=== PATIENT | male | born 1965 | race Caucasian/White ===

== ENCOUNTER 2016-02-27 10:00 | Emergency (ER) | payer OTHER ==
[2016-02-27 10:22] VITALS: RESP 16; TEMP 98.1
[2016-02-27] MEDS ORDERED: ASPIRIN 81 MG CHEWABLE TAB PO ONE (10:27)
[2016-02-27] MEDS ORDERED: ENOXAPARIN 100 MG/ML SYR SC ONE (11:21)
--- NOTE | 2016-02-27 11:23 | US ---
Right Lower Extremity Ultrasound and Venous Duplex Doppler Study History: Right leg swelling and tenderness. Comparison: None available. Technique: High frequency transducer was used for imaging and Doppler study of the veins of the lowe r extremity. Pulsed Doppler and color Doppler were utilized, along with various maneuvers to assess flow in the veins. Findings: There is DVT extending from the distal femoral vein through the popliteal vein and into the peroneal and posterior tibial veins throughout the calf. The common femoral vein and proximal femora l vein are patent. The greater saphenous vein is patent. Impression: DVT extending from the distal femoral vein through the calf veins. Findings discussed with Adriel Ordaz today at 1110 hours.
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
[2016-02-27 13:04] VITALS: BP 148/103; PULSE 79; O2SAT 96
== END 2016-02-27 12:45 | disposition home or self-care (01) ==
LOC: CED 10:00
DX: I82.4Z1 Acute embolism and thrombosis of unspecified deep veins of right distal lower extremity (principal)
CPT/HCPCS: 93971-PO; 96372-PO; G0463-PO; J1650

== ENCOUNTER → 2016-02-28 | Outpatient (CLI) | payer OTHER ==
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
== END ==
LOC: FIMAGING 15:27
PROVIDERS: ATTEND Radiology Diagnostic Radiology
DX: I82.4Z1 Acute embolism and thrombosis of unspecified deep veins of right distal lower extremity (principal)

== ENCOUNTER 2016-03-07 11:36 | Inpatient (IN) | payer OTHER ==
[2016-03-07] MEDS ORDERED: fentaNYL 100 MCG/2 ML INJ ONE (13:35)
[2016-03-07] MEDS ORDERED: MIDAZOLAM 2 MG/2 ML VIAL ONE (13:35)
[2016-03-07] MEDS ORDERED: ALTEPLASE 5 MG in NS 100 ML IVP SCH (14:30)
[2016-03-07] MEDS ORDERED: NITROGLYCERIN 2% 1 GM PACKET ONE (14:31)
[2016-03-07] MEDS ORDERED: HEPARIN/DEXTROSE 25,000 UNIT/500 ML BAG IV ONE (15:26)
[2016-03-07] MEDS ORDERED: IOPAMIDOL (ISOVUE-300) 100 ML BTL IV ONE (15:43)
[2016-03-07] MEDS ORDERED: ONDANSETRON 4 MG/2 ML VIAL IVP PRN (16:19)
[2016-03-07] MEDS ORDERED: PROMETHAZINE HCL 25 MG/ML INJ IVP PRN (16:19)
[2016-03-07] MEDS ORDERED: HEPARIN/DEXTROSE 500 ML IV SCH (16:30)
[2016-03-07] MEDS: ALTEPLASE 5 MG in NS 100 ML IV SCH ×2 (18:55→23:00)
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
[2016-03-07] MEDS: LORazepam 1 MG TAB PO PRN (22:46)
[2016-03-07 22:53] LABS: APTT 45.8 SEC (23.0-38.0)
[2016-03-08] MEDS: ALTEPLASE 5 MG in NS 100 ML IV SCH (03:59)
[2016-03-08] MEDS: LORazepam 1 MG TAB PO PRN ×2 (04:46→22:09)
[2016-03-08 04:48] LABS: % IMMATURE GRANULYOCYTES 0.1 % (0.0-1.1); ABSOLUTE IMMATURE GRANULOCYTES 0.01 10^3/uL (0.00-0.10); ADD DIFF? NO; ADD MORPH? NO; ADD SCAN? NO; ATYPICAL LYMPHOCYTE FLAG 10 (0-99); FRAGMENT RBC FLAG 0 (0-99); HEMATOCRIT 37.5 % (40.0-51.0); HEMOGLOBIN 12.5 g/dL (13.7-17.5); LEFT SHIFT FLG 0 (0-99); LIPEMIA HEMOLYSIS FLAG 80 (0-99); MEAN CELL HEMOGLOBIN 29.4 pg (27.9-34.1); MEAN CELL HEMOGLOBIN CONCENTR. 33.3 g/dL (32.4-36.7); MEAN CELL VOLUME 88.2 fL (81.5-99.8); MEAN PLATELET VOLUME 9.7 fL (8.7-11.7); PLATELET CLUMPS FLAG 10 (0-99); PLATELET COUNT 252 10^3/uL (150-400); RED BLOOD CELL COUNT 4.25 10^6/uL (4.40-6.38); RED CELL DISTRIBUTION WIDTH 11.7 % (11.5-15.2)
[2016-03-08 05:02] LABS: APTT 42.8 SEC (23.0-38.0)
[2016-03-08 08:38] LABS: APTT 41.5 SEC (23.0-38.0)
[2016-03-08] MEDS ORDERED: fentaNYL 100 MCG/2 ML INJ ONE (10:00)
[2016-03-08] MEDS ORDERED: MIDAZOLAM 2 MG/2 ML VIAL ONE (10:00)
[2016-03-08] MEDS ORDERED: IOPAMIDOL (ISOVUE-300) 100 ML BTL IV ONE (10:50)
[2016-03-08] MEDS ORDERED: HEPARIN 10,000 UNIT/10 ML MDV ONE (10:51)
[2016-03-08] MEDS ORDERED: NON-FORMULARY NEW DRUG (Losartan Potassium [Cozaar] 100 MG) PO SCH (11:15)
[2016-03-08] MEDS ORDERED: RIVAROXABAN 15 MG TAB PO SCH (11:30)
[2016-03-08] MEDS: LOSARTAN POTASSIUM 50 MG TAB PO SCH (11:52)
[2016-03-08] MEDS ORDERED: ACETAMINOPHEN 325 MG TAB PO PRN (18:57)
--- NOTE | 2016-03-08 19:04 | SOAPPROG ---
[facility] Progress Note Assessment/Plan: Assessment: 1. Already underway with good clinical response. 2. Residual DVT in RT leg will likely continue to lyse with anticoagulation. 3. Patient is at the highest risk for re-clotting in the next two weeks. Plan: 1. OOB 2. Ankel ROM excercises encouraged; 3. Compression stocking 4. Hold Xeralto for now. Lovenox 100mg BID x 2 weeks (script on chart) to maximize adequate anticoagulation. 5. May resume Xeralto after lovenox. 6. May resume any activity appropriate for knee rehab. 7. Floor status 8. Anticipate D/C tomorrow. 03/08/16 18:59 Subjective: Hasn't gotten out of bed since procedure but feels better. RT leg pain less. Objective: Vital Signs Temp Pulse Resp BP Pulse Ox 37.1 C 87 14 131/74 H 93 03/08/16 16:13 03/08/16 18:00 03/08/16 18:00 03/08/16 18:00 03/08/16 18:00 Laboratory Results 03/08/16 04:30 03/07/16 03/08/16 03/09/16 05:59 05:59 05:59 Intake Total 672 1016 Output Total 1999 3050 Balance -1328 -84 RLE calf tenseness and redness already much improved. Foot edema improved. ICD10 Worksheet Patient Problems: Problems Problem Status Diagnosed Dvt femoral (deep venous thrombosis) Acute - ICD10 Problem Qualifiers (1) Dvt femoral (deep venous thrombosis)
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
[2016-03-08] MEDS: ENOXAPARIN 100 MG/ML SYR SC SCH (21:37)
[2016-03-09 07:53] VITALS: PULSE 74; RESP 16; TEMP 97.7; O2SAT 98
[2016-03-09 09:07] VITALS: BP 118/77
[2016-03-09] MEDS: ENOXAPARIN 100 MG/ML SYR SC SCH (09:07)
[2016-03-09] MEDS: LOSARTAN POTASSIUM 50 MG TAB PO SCH (09:07)
--- NOTE | 2016-03-09 11:46 | SOAPPROG ---
[facility] Progress Note Assessment/Plan: Assessment: 1. Already underway with good clinical response. 2. Residual DVT in RT leg will likely continue to lyse with anticoagulation. 3. Patient is at the highest risk for re-clotting in the next two weeks. Plan: 1. OOB 2. Ankel ROM excercises encouraged; 3. Compression stocking 4. Hold Xeralto for now. Lovenox 100mg BID x 2 weeks (script on chart) to maximize adequate anticoagulation. 5. May resume Xeralto after lovenox. 6. May resume any activity appropriate for knee rehab. 7. Floor status 8. Anticipate D/C tomorrow. 03/08/16 18:59 03/09/16 11:46 Doing great. D/C home today. Lovenox x 2 2weeks; Xeralto after that. Follow up with PCP and Ortho as needed. Subjective: Continues to feel good. Leg swelling continues to be better. Foot swelling better. Objective: Vital Signs Temp Pulse Resp BP Pulse Ox 36.5 C 74 16 118/77 98 03/09/16 07:52 03/09/16 07:52 03/09/16 07:52 03/09/16 09:07 03/09/16 07:52 Laboratory Results 03/08/16 04:30 03/08/16 03/09/16 03/10/16 05:59 05:59 05:59 Intake Total 672 2671 Output Total 1999 8789 Tfyrwtr -9300 -06 Compression on, but can see that swelling is visibly less at foot. Pulses good. ICD10 Worksheet Patient Problems: Problems Problem Status Diagnosed Dvt femoral (deep venous thrombosis) Acute - ICD10 Problem Qualifiers (1) Dvt femoral (deep venous thrombosis)
--- NOTE | 2016-03-09 22:28 | IR ---
Lysis Follow up Mechanical Thrombectomy of Right Lower Extremity DVT Indication: Post 16-hour TPA lysis. Infusions have been stopped for several hours because of droppi ng fibrinogen count. The patient reports feeling better. Informed Consent: Obtained from the patient. Risks and benefits were discussed. Cross Cutting Measure: Patient's current list of medications including all known prescriptions, over -the-counters, herbals, and vitamin/mineral/dietary supplements are reviewed. Medications' name, dos age, frequency, and route of administration are confirmed. Patient is a non-smoker. Prophylactic Antibiotic: Cefazolin was not ordered and administered for antimicrobial prophylaxis be cause it was not medically necessary. VTE Prophylaxis: There is not an order for VTE prophylaxis to be given within 24 hours of the proced ure end time. VTE prophylaxis was not given because it was not medically necessary. Technique: Patient is placed in prone position. A "timeout" procedure was performed to identify the correct patient and the correct procedure. 1% Xylocaine was used for local anesthetic. All element s of maximal sterile barrier technique, including cap, mask, sterile gown, sterile gloves, large ster ile sheet, hand hygiene, and 2% chlorhexidine for cutaneous antisepsis, followed. Venogram is performed through the existing ankle catheter. This shows increased vascularity throughou t the calf. The clot in the femoral segment has decreased, although the caliber of the vein still re tony small. Injected contrast does clear fairly fast, at least faster, in the calf segment. The infusion catheter is removed over exchange length 0.014 wire. 5-[place]vad[place] Possis AngioJet system is inserted, and mechanical thrombectomy is performed. Post thrombectomy venogram shows much faster an tegrade flow, with a larger caliber popliteal and femoral vein segment. There is inline flow to the p atent upstream vessels. Catheters and wires were removed. Hemostasis was obtained using pressure holding. Medication: 200 mcg fentanyl, 4 mg Versed, [id number]. Fluoroscopy: 3.4 minutes, 8 images. Impressions 1. Moderate clot removal. 2. Still smaller caliber of vessels, but now an inline flow has been established from calf to thigh. 3. Much improved vascular flow in the calf. Follow up: Continued evaluation of this patient shows significant improvement in calf swelling and t enseness. Thigh symptoms are also improved.
--- NOTE | 2016-03-11 20:41 | GDS ---
[f rep st] DISCHARGE SUMMARY INDICATION: 1. Extensive right lower extremity deep venous thrombosis. 2. Tibial plateau fracture with nonweightbearing status for at least five more weeks. 3. Clinically symptomatic swelling and erythema. 4. 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 PROCEDURE PERFORMED: Venogram and deep venous thrombosis lysis of the right lower extremity. HOSPITAL COURSE: The procedure started on March 07. On March 08, patient was evaluated with venogram, showing significant improvement in clot burden. TP lysis was completed. After recovery, patient ambulating and was transitioned to Lovenox. By the next day, March 09, hi s cast swelling was already significantly better. His leg discoloration is now nearly completely res olved. The clinical response from this was excellent in the short term. Patient is a high-risk for reclotting in the next two weeks. He was taken off his Xarelto for this r italo and placed on therapeutic twice-a-day Lovenox. He is to resume his Xarelto after Lovenox for t wo weeks. All of the above was discussed in detail with the patient. I also gave the patient a prescription fo r a medical-grade compression stocking and I highly encouraged him to wear that during his knee recov armando phase. ACTIVE LIMITATIONS: None from this procedure. Only as limited by his tibial plateau fracture. He c an resume physical therapy as directed by Orthopedics. MEDICATIONS: 1. Lovenox 100 mg twice a day subcu injection x14 days. 2. Resume Xarelto 15 mg once a day. 3. After that, patient can resume all other previous outpatient medications. FOLLOWUP: 1. No need to follow up with Interventional Radiology as long as he is clinically stable or improvin g. 2. I have asked the patient to call me as soon as he thinks he is getting worse. 3. I do not think at this point that the patient needs an outpatient hematologic workup for hypercoa gulability, because he has a instigating event of clotting due to his fracture. /[id number]/MODL
== END 2016-03-09 13:30 | disposition home or self-care (01) | DRG 272 ==
LOC: FIMAGING 11:36 → F2N 14:41
PROVIDERS: ADMIT Radiology Diagnostic Radiology; ATTEND Radiology Diagnostic Radiology
PROC: 3E03317 Introduction of Other Thrombolytic into Peripheral Vein, Percutaneous Approach (ICD-10-PCS; 2016-03-07)
PROC: 06CM3ZZ Extirpation of Matter from Right Femoral Vein, Percutaneous Approach (ICD-10-PCS; principal; 2016-03-08)
DX: I82.401 Acute embolism and thrombosis of unspecified deep veins of right lower extremity (principal); S82.141D Displaced bicondylar fracture of right tibia, subsequent encounter for closed fracture with routine healing; V29.9XXD Motorcycle rider (driver) (passenger) injured in unspecified traffic accident, subsequent encounter
CPT/HCPCS: 85520-90; C1757; C1769; J1644; J1650; J2250; J2405; J2997; J3010; Q9967

== ENCOUNTER → 2016-08-29 | Outpatient (CLI) | payer OTHER | LOC: FIMAGING 09:41 | PROVIDERS: ATTEND Nurse Practitioner Adult Health | DX: I82.431 Acute embolism and thrombosis of right popliteal vein (principal) ==